=== PATIENT | male | born 1985 | race Hispanic/Latino ===

== ENCOUNTER 2017-07-25 22:31 | Emergency (ER) | payer OTHER ==
--- NOTE | 2017-07-25 23:07 | Emergency Department Report ---
HPI - General Time Seen by Provider: 07/25/17 22:48 - HPI HPI: This is a 32-year-old male presents to the emergency department via [place] police after he had an episode of suicidal ideations this evening. The patient says that he took a Dilaudid pill for some right leg pain he has and then drink some alcohol. He thinks that the combination of these substances caused him to have a manic episode and he called the suicide hotline saying that he was feeling suicidal. He says that a friend came over and took away anything that he might be able to use to harm himself and talk to him and he was feeling better. The suicide hotline called [place] police who brought him in to be seen. He has a past medical history of asthma. He has a psychiatric history of bipolar disorder. He is supposed to be on Depakote for his bipolar disorder but says he has not been taking it as he has been out of his medication. He does not have a primary care physician. He currently says he is feeling better. ED Review of Systems ROS: Stated complaint: SUIDICAL Other details as noted in HPI Comment: All other systems reviewed and negative Constitutional: denies: chills, fever Eyes: denies: eye pain, eye discharge, vision change ENT: denies: ear pain, throat pain Respiratory: denies: cough, shortness of breath, wheezing Cardiovascular: denies: chest pain, palpitations Gastrointestinal: denies: abdominal pain, nausea, diarrhea Genitourinary: denies: urgency, dysuria Musculoskeletal: denies: back pain, joint swelling, arthralgia Skin: denies: rash, lesions Neurological: denies: headache, weakness, paresthesias Psychiatric: suicidal thoughts. denies: auditory hallucinations, visual hallucinations, homicidal thoughts Physical Exam - Physical Exam Physical Exam: GENERAL: The patient is well-developed well-nourished. HENT: Normocephalic. Atraumatic. Patient has moist mucous membranes. EYES: Extraocular motions are intact. Pupils equal reactive to light bilaterally. NECK: Supple. Trachea is midline. CHEST/LUNGS: Clear to auscultation. There is no respiratory distress noted. HEART/CARDIOVASCULAR: Regular. There is no tachycardia. There is no gallop rub or murmur. ABDOMEN: Abdomen is soft, nontender. Patient has normal bowel sounds. There is no abdominal distention. SKIN: Skin is warm and dry. NEURO: The patient is awake, alert, and oriented. The patient is cooperative. The patient has no focal neurologic deficits. The patient has normal speech and gait. Cranial nerves II through XII grossly intact. MUSCULOSKELETAL: There is no tenderness or deformity. There is no limitation range of motion. There is no evidence of acute injury. ED Medical Decision Making - Lab Data Result diagrams: 07/25/17 23:23 07/25/17 23:23 - Medical Decision Making 32-year-old male presents to the emergency department after having some suicidal ideations. He admits to taking an oral Dilaudid and drinking a fifth of vodka. Patient was calm and appropriate during history and physical. He says he does not currently have suicidal ideations but did earlier in the day. The patient was told that he was going to be made a 1013, at least to start overnight, the patient did become agitated and angry but I was able to speak with the patient and he escalate the situation and he did not require any type of sedation at this point. Labs are mostly unremarkable but he does have a blood alcohol level of 0.25. Vital signs stable throughout his course. He has been made a 1013 secondary to his suicidal ideations. While he has not yet legally sober, I do believe the patient is medically cleared but any placement will not be attempted until at least late morning when his blood alcohol level is normal. - Differential Diagnosis alcohol intoxication, bipolar disorder, depression, anxiety Critical Care Time: No Critical care attestation.: If time is entered above; I have spent that time in minutes in the direct care of this critically ill patient, excluding procedure time. ED Disposition Clinical Impression: Suicidal ideations, History of bipolar disorder Alcohol intoxication Qualifiers: Complication of substance-induced condition: uncomplicated Qualified Code(s): F10.920 - Alcohol use, unspecified with intoxication, uncomplicated Disposition: [id number]/TX-[id number] PSY HOSP/PSY UNIT Is pt being admited?: No Condition: Stable Referrals: PRIMARY CARE, [Primary Care Provider] - 3-5 Days Time of Disposition: 00:36
[2017-07-25 23:54] LABS: Hematocrit 46.8 % (35.5-45.6); Mean Corpuscular HGB Conc 34 % (32-34); Mean Corpuscular Hemoglobin 30 pg (28-32); Mean Corpuscular Volume 86 fl (84-94); Platelet Count 343 K/mm3 (140-440); Red Blood Count 5.42 M/mm3 (3.65-5.03); Red Cell Distribution Width 13.8 % (13.2-15.2); White Blood Count 10.3 K/mm3 (4.5-11.0)
[2017-07-26 00:06] LABS: Urine Drugs of Abuse Note Disclamer
[2017-07-26 00:09] LABS: Anion Gap 23 mmol/L; Blood Urea Nitrogen 12 mg/dL (9-20); Calcium 9.1 mg/dL (8.4-10.2); Carbon Dioxide 21 mmol/L (22-30); Chloride 106.4 mmol/L (98-107); Glucose 100 mg/dL (75-100); Potassium 3.9 mmol/L (3.6-5.0); Sodium 146 mmol/L (137-145)
[2017-07-26 00:18] LABS: Bilirubin,Urine NEG (Negative); Blood,Urine NEG (Negative); Ketones,Urine NEG (Negative); Leukocyte Esterase,Urine NEG (Negative); Mucus,Urine FEW /HPF; Nitrite,Urine NEG (Negative); Protein,Urine <15 mg/dL mg/dL (Negative); Urobilinogen,Urine < 2.0 mg/dL (<2.0); WBC,Urine < 1.0 /HPF (0.0-6.0)
[2017-07-26 03:26] LABS: Basophils % (Manual) 0 % (0.0-1.8); Blastocytes % (Manual) 0 %
[2017-07-26 03:27] LABS: Anisocytosis Few; Diff Status Complete; Large Platelets Few
--- NOTE | 2017-07-26 17:13 | Consultation ---
History of Present Illness - Reason for Consult Consult date: 07/26/17 Reason for consult: Mental Health Evaluation Requesting physician: SUZIE YARBROUGH - Chief Complaint Chief complaint: "It was the alcohol" - History of Present Psychiatric Illness This is a 32-year-old male presents to the emergency department via [place] police after he had an episode of suicidal ideations. Today patient is calm and cooperative during the assessment. He stated that he took a Percocet for leg pain and drink alcohol (etoh). He stated after drinking the alcohol with the percocet, he felt "some type way." He stated that he called the crisis hotline because he felt like he was having a "manic" episode. The patient has a hx of bipolar do. He stated that he wasn't suicidal on admission, but was being an "Ass Hole" by mentioning that during triage. He denies ever wanting to kill himself or any past attempts of suicide. He stated that he relapsed a couple days ago on alcohol. He stated being sober for months prior to his relapse. He stated that he take Depakote, Wellbutrin, and Trazodone. He stated that he plan to continue to take his medications and find a psychiatrist in his local area. Also, patient want a referral for outpatient rehab services for alcohol abuse. Patient is new to the area. He denies SI/HI's, AVH, and depression. Patient stated that he haven't slept well in a couple days. He denies recreational drug use. Medications and Allergies Allergies Allergy/AdvReac Type Severity Reaction Status Date / Time No Known Allergies Allergy Unverified 07/26/17 04:42 Past psychiatric history - Past Medical History Past Medical History: No medical history Past Surgical History: No surgical history - past Psychiatric treatment and history Psych: Bipolar psychiatric treatment history: Patient has a hx of Bipolar DO. Denies a fam psy hx. - Social History Social history: Lives alone ([employer] Graduate) Mental Status Exam - Vital signs Last Vital Signs Temp 97.9 F 07/26/17 08:55 Pulse 95 H 07/26/17 08:55 Resp 18 07/26/17 08:55 BP 127/81 07/26/17 08:55 Pulse Ox 95 07/26/17 08:55 - Exam Narrative exam: ROS: (-) depression MSE: Appearance: calm, cooperative Behavior: regular eye contact Speech: regular rate and tone Mood: "okay" Affect: congruent to mood Thought Process: linear Thought Content: denies SI/HI's and AVH's Motor Activity: ambulatory Cognition: A/Ox 3 Insight: fair Judgment: fair Results Result Diagrams: 07/25/17 23:23 07/25/17 23:23 Abnormal lab results 07/25/17 07/25/17 07/25/17 Range/Units 23:23 23:23 23:23 RBC 5.42 H (3.65-5.03) M/mm3 Hgb 16.0 H (11.8-15.2) gm/dl Hct 46.8 H (35.5-45.6) % Seg Neuts % (Manual) 39.0 L (40.0-70.0) % Lymphocytes % (Manual) 39.0 H (13.4-35.0) % Sodium 146 H (137-145) mmol/L Carbon Dioxide 21 L (22-30) mmol/L Salicylates < 0.3 L (2.8-20.0) mg/dL Plasma/Serum Alcohol (0-0.07) gm% 07/25/17 Range/Units 23:23 RBC (3.65-5.03) M/mm3 Hgb (11.8-15.2) gm/dl Hct (35.5-45.6) % Seg Neuts % (Manual) (40.0-70.0) % Lymphocytes % (Manual) (13.4-35.0) % Sodium (137-145) mmol/L Carbon Dioxide (22-30) mmol/L Salicylates (2.8-20.0) mg/dL Plasma/Serum Alcohol 0.25 H (0-0.07) gm% All other labs normal. Assessment and Plan Assessment and plan: Impression: Historical Dx: Bipolar DO. Alcohol Use DO. Today patient is calm and cooperative during the assessment. Patient is no threat to self. DDx: R/O MDD Recommendation/Plan: Rescind 1013. Patient given outpatient psy/rehab services for [facility]. Patient will need a prescription for Depakote 500 mg PO BID and Trazodone 50 mg PO HS for sleep. Discussed possible suicidality/ medication induced val/priapism with patient reference [facility]. Discussed with patient the importance to get his Depakote levels checked within 5 to 7 day after starting medication. Discussed the importance to abstain from alcohol consumption.
[2017-07-26 19:09] LABS: Alanine Aminotransferase 30 units/L (7-56); Alkaline Phosphatase 60 units/L (35-129)
[2017-07-26 20:30] VITALS: BP 121/70
--- NOTE | 2017-07-26 22:28 | Emergency Department Report ---
Blank Doc - Documentation Documentation: Patient in the ED for greater than 23 hours. He received evaluation for mental health. Resending of 1013 recommended. See note. See impression, diagnosis, and recommendation as per mental health imported below. Patient will be discharged as per mental health recommendation Impression: Historical Dx: Bipolar DO. Alcohol Use DO. Today patient is calm and cooperative during the assessment. Patient is no threat to self. DDx: R/O MDD Recommendation/Plan: Rescind 1013. Patient given outpatient psy/rehab services for [facility]. Patient will need a prescription for Depakote 500 mg PO BID and Trazodone 50 mg PO HS for sleep. Discussed possible suicidality/ medication induced val/priapism with patient reference [place]. Discussed with patient the importance to get his Depakote levels checked within 5 to 7 day after starting medication. Discussed the importance to abstain from alcohol consumption.
== END 2017-07-26 22:59 | disposition home or self-care (01) ==
LOC: EEVIPCON 22:31 → ED 22:31
DX: F31.9 Bipolar disorder, unspecified (principal); F10.120 Alcohol abuse with intoxication, uncomplicated; M79.604 Pain in right leg
CPT/HCPCS: 36415; 80048; 80164; 80307; 81001; 84075; 84450; 84460; 85007; 85025; 99284; G0480; 80320